=== PATIENT | female | born 1990 | race Caucasian/White ===

== ENCOUNTER 2017-07-15 14:59 | Emergency (ER) | payer OTHER ==
[2017-07-15 16:06] VITALS: BP 140/85; PULSE 101; RESP 18; TEMP 98.4; O2SAT 99
[2017-07-15 16:41] LABS: BLOOD, URINE NEG (NEG); GLUCOSE,URINE NEG (NEG); KETONE, URINE 80 OR GREATER mg/dL (NEG); NITRITE,URINE NEG (NEG)
--- NOTE | 2017-07-15 16:44 | PD ---
HPI Chief Complaint: Abdominal Pain Time Seen by Provider: 16:37 Travel History International Travel<30 days: No Contact w/Intl Traveler<30days: No Traveled to known affect area: No History of Present Illness HPI WOKE UP WITH [facility] /[facility], 8/10 ABD PAIN, ASSOC WITH N/V/D THAT HAS NOT IMPROVED. PCP: DR RAUL WARE PSHX: LAP CYST REMOVAL ON LEFT PMHX: ASTHMA, SEASONAL ALLERGIES AND MILD DEPRESSION PFSH Past Medical History ?: Not LMP: 2 WEEKS AGO Allergies-Medications (Allergen,Severity, Reaction): Coded Allergies: Penicillins (Verified Allergy, Severe, Anaphylaxis, 07/15/17) amoxicillin (Verified Allergy, Severe, Anaphylaxis, 07/15/17) Reported Meds & Prescriptions Reported Meds & Active Scripts Active Reported Claritin (Loratadine) 10 Mg Cap 10 Mg PO DAILY Viibryd (Vilazodone) 10 Mg Tab 10 Mg PO DAILY [ control] 1 Tab PO DAILY Review of Systems Except as stated in HPI: all other systems reviewed are Neg General / Constitutional: No: Fever Eyes: No: Visual changes HENT: No: Headaches Cardiovascular: No: Chest Pain or Discomfort Respiratory: No: Shortness of Breath Gastrointestinal: Positive: Nausea, Vomiting, Diarrhea, Abdominal Pain Genitourinary: No: Dysuria Musculoskeletal: No: Pain Skin: No Rash Neurologic: No: Weakness Psychiatric: No: Depression Endocrine: No: Polydipsia Hematologic/Lymphatic: No: Easy Bruising Physical Exam Narrative GENERAL: SKIN: Warm and dry. HEAD: Atraumatic. Normocephalic. EYES: Pupils equal and round. No scleral icterus. No injection or drainage. ENT: No nasal bleeding or discharge. Mucous membranes pink and moist. NECK: Trachea midline. No JVD. CARDIOVASCULAR: Regular rate and rhythm. RESPIRATORY: No accessory muscle use. Clear to auscultation. Breath sounds equal bilaterally. GASTROINTESTINAL: Abdomen soft, non-tender, nondistended. HYPERACTIVE BOWEL SOUNDS MUSCULOSKELETAL: Extremities without clubbing, cyanosis, or edema. No obvious deformities. NEUROLOGICAL: Awake and alert. No obvious cranial nerve deficits. Motor grossly within normal limits. Five out of 5 muscle strength in the arms and legs. Normal speech. PSYCHIATRIC: Appropriate mood and affect; insight and judgment normal. Data Data Last Documented VS Vital Signs Date Time Temp Pulse Resp B/P (MAP) Pulse Ox O2 Delivery O2 Flow Rate FiO2 07/15/17 16:50 16 97 Room Air 07/15/17 16:06 98.4 101 140/85 (103) Orders Orders Urinalysis - C+S If Indicated (07/15/17 15:30) Ed Urine Pregnancytest Poc (07/15/17 15:30) Complete Blood Count With Diff (07/15/17 16:45) Comprehensive Metabolic Panel (07/15/17 16:45) Lipase (07/15/17 16:45) Ct Abd/Pel W/O Iv Contrast (07/15/17 16:45) Iv Access Insert/Monitor (07/15/17 16:45) Ecg Monitoring (07/15/17 16:45) Oximetry (07/15/17 16:45) Morphine Inj (Morphine Inj) (07/15/17 16:45) Ondansetron Inj (Zofran Inj) (07/15/17 16:45) Sodium Chlor 0.9% 1000 Ml Inj (Ns 1000 M (07/15/17 16:45) Labs Laboratory Tests Test 07/15/17 16:15 07/15/17 17:00 Urine Collection Type CLEAN CATCH Urine Color YELLOW Urine Turbidity SLIGHT Urine pH 6.0 Urine Specific [place] 1.032 Urine Protein TRACE mg/dL Urine Glucose (UA) NEG mg/dL Urine Ketones 80 OR GREATER mg/dL Urine Occult Blood NEG Urine Nitrite NEG Urine Bilirubin NEG Urine Leukocyte Esterase NEG Urine RBC 0-3 /hpf Urine Squamous Epithelial Cells 6-8 /hpf Urine Amorphous Sediment MOD Microscopic Urinalysis Comment CULT NOT INDICATED Urine Collection Time 1615 White Blood Count 12.6 TH/MM3 Red Blood Count 5.16 MIL/MM3 Hemoglobin 13.7 GM/DL Hematocrit 42.9 % Mean Corpuscular Volume 83.2 FL Mean Corpuscular Hemoglobin 26.5 PG Mean Corpuscular Hemoglobin Concent 31.8 % Red Cell Distribution Width 12.6 % Platelet Count 344 TH/MM3 Mean Platelet Volume 7.4 FL Neutrophils (%) (Auto) 91.6 % Lymphocytes (%) (Auto) 5.8 % Monocytes (%) (Auto) 1.9 % Eosinophils (%) (Auto) 0.6 % Basophils (%) (Auto) 0.1 % Neutrophils # (Auto) 11.6 TH/MM3 Lymphocytes # (Auto) 0.7 TH/MM3 Monocytes # (Auto) 0.2 TH/MM3 Eosinophils # (Auto) 0.1 TH/MM3 Basophils # (Auto) 0.0 TH/MM3 CBC Comment DIFF FINAL Differential Comment Blood Urea Nitrogen 10 MG/DL Creatinine 0.66 MG/DL Random Glucose 103 MG/DL Total Protein 8.4 GM/DL Albumin 3.4 GM/DL Calcium Level 8.9 MG/DL Alkaline Phosphatase 122 U/L Aspartate Amino Transf (AST/SGOT) 17 U/L Alanine Aminotransferase (ALT/SGPT) 21 U/L Total Bilirubin 0.3 MG/DL Sodium Level 136 MEQ/L Potassium Level 3.8 MEQ/L Chloride Level 104 MEQ/L Carbon Dioxide Level 23.0 MEQ/L Anion Gap 9 MEQ/L Estimat Glomerular Filtration Rate 110 ML/MIN Lipase 81 U/L [facility] Medical Decision Making Medical Screen Exam Complete: Yes Emergency Medical Condition: Yes Medical Record Reviewed: Yes Differential Diagnosis PANCREATITIS V GASTROENTERITIS V APPY Diagnosis Primary Impression: Bacterial gastroenteritis Scripts Metronidazole (Flagyl) 500 Mg Tab 500 MG PO TID for Infection for 7 Days, #21 TAB 0 Refills Prov: Roe Arias MD 07/15/17 Ciprofloxacin (Cipro) 500 Mg Tab 500 MG PO BID for Infection for 5 Days, #10 TAB 0 Refills Prov: Roe Arias MD 07/15/17 Codeine-Acetaminophen (Codeine-Acetaminophen) 30-300 mg Tab 1 TAB PO Q4H Y for PAIN, #15 TAB 0 Refills Prov: Roe Arias MD 07/15/17 Ondansetron Odt (Zofran Odt) 4 Mg Tab 4 MG SL Q6HR Y for Nausea/Vomiting, #20 TAB 0 Refills Prov: Roe Arias MD 07/15/17 Disposition: 01 DISCHARGE HOME Condition: Stable Roe Arias MD Jul 15, 2017 16:44
[2017-07-15] MEDS ORDERED: ONDANSETRON HCL 4 MG/2 ML VIAL IVP ONE (16:45)
[2017-07-15] MEDS ORDERED: SODIUM CHLOR 0.9% 1000 ML INJ 1,000 ML IV SCH (16:45)
[2017-07-15] MEDS ORDERED: MORPHINE SULFATE 4 MG/ML INJ IV PUSH ONE (16:45)
[2017-07-15 16:50] VITALS: RESP 16; O2SAT 97
[2017-07-15] MEDS ORDERED: birth control PO (16:55)
[2017-07-15] MEDS ORDERED: CLAR10CA3 PO (17:10)
[2017-07-15] MEDS ORDERED: VIIB10TA PO (17:10)
[2017-07-15 17:17] LABS: METHOD OF COLLECTION CLEAN CATCH; URINE COLOR YELLOW (YELLW/STRAW)
[2017-07-15 17:18] LABS: COMMENT (UR) CULT NOT INDICATED; COMMENT2 (UR) MUCOUS PRESENT; CULTURE IF INDICATED CULT NOT INDICATED; RBC, URINE 0-3 /hpf (0-3)
[2017-07-15 17:19] LABS: CHLORIDE 104 MEQ/L (98-107); POTASSIUM 3.8 MEQ/L (3.5-5.1); SODIUM (NA) 136 MEQ/L (136-145)
[2017-07-15 17:22] LABS: AUTOMATED NEUTROPHIL # 11.6 TH/MM3 (1.8-7.7); BASOPHIL % 0.1 % (0.0-2.0); EOSINOPHIL # 0.1 TH/MM3 (0-0.4); EOSINOPHIL % 0.6 % (0.0-4.0); HEMATOCRIT 42.9 % (35.0-46.0); HEMO FLAGS DIFF FINAL; LYMPH % 5.8 % (9.0-44.0); LYMPHOCYTE # 0.7 TH/MM3 (1.0-4.8); MEAN CELL VOLUME 83.2 FL (80.0-100.0); MEAN CORPUSCULAR HEMOGLOBIN 26.5 PG (27.0-34.0); MEAN CORPUSCULAR HGB CONC 31.8 % (32.0-36.0); MONO % 1.9 % (0.0-8.0); NEUT % 91.6 % (16.0-70.0); PLATELET COUNT 344 TH/MM3 (150-450); RED BLOOD COUNT 5.16 MIL/MM3 (4.00-5.30); RED CELL DISTRIBUTION WIDTH 12.6 % (11.6-17.2); WHITE BLOOD COUNT 12.6 TH/MM3 (4.0-11.0)
[2017-07-15 17:23] LABS: ANION GAP 9 MEQ/L (5-15); BLOOD UREA NITROGEN 10 MG/DL (7-18)
[2017-07-15 17:26] LABS: ALT (GPT) 21 U/L (10-53); AST (GOT) 17 U/L (15-37); GLOMERULAR FILTRATION RATE 110 ML/MIN (>89)
[2017-07-15 17:27] LABS: TOTAL BILIRUBIN ADULT 0.3 MG/DL (0.2-1.0)
[2017-07-15 17:28] LABS: ALKALINE PHOSPHATASE 122 U/L (45-117)
--- NOTE | 2017-07-15 17:28 | RADRPT ---
EXAM DATE/TIME: 07/15/2017 17:04 [place] COMPARISON: No previous studies available for comparison. INDICATIONS : Diffuse abdominal pain and nausea. ORAL CONTRAST: No oral contrast ingested. RADIATION DOSE: 17.23 CTDIvol (mGy) MEDICAL HISTORY : None SURGICAL HISTORY : None. ENCOUNTER: Initial ACUITY: 1 day PAIN SCALE: 8/10 LOCATION: Bilateral abdomen TECHNIQUE: Volumetric scanning of the abdomen and pelvis was performed. Using automated exposure control and ad justment of the mA and/or kV according to patient size, radiation dose was kept as low as reasonably achievable to obtain optimal diagnostic quality images. DICOM format image data is available electro nically for review and comparison. FINDINGS: Lung bases are clear. No acute findings in the liver, spleen, adrenals, kidneys or pancreas. No calci fied gallstones. No free fluid or free air. No bowel obstruction. Appendix normal. No obstructive uro caio. CONCLUSION: 1. No acute findings on abdomen and pelvic CT. Dequan Springer MD on July 15, 2017 at 17:24 Board Certified Radiologist. This report was verified electronically.
[2017-07-15] MEDS ORDERED: CIPR-9 PO (17:36)
[2017-07-15] MEDS ORDERED: CODE30TA2 PO (17:36)
[2017-07-15] MEDS ORDERED: METR-1 PO (17:36)
[2017-07-15] MEDS ORDERED: ZOFR4TAB3 SL (17:36)
[2017-07-15 17:50] VITALS: RESP 16
[2017-07-15 18:31] VITALS: BP 130/75
== END 2017-07-15 18:40 | disposition home or self-care (01) ==
LOC: PHED 14:59
DX: A04.9 Bacterial intestinal infection, unspecified (principal)
CPT/HCPCS: 74176; 80053; 81001; 83690; 84703; 85025; 96361; 96374; 99285; J2270; J2405; J7030